=== PATIENT | female | born 1960 | race Caucasian/White ===

== ENCOUNTER → 2016-05-27 | Outpatient (CLI) | payer MEDICARE ==
[~2016-05-27] MED LIST: AMLO2.5T PO; ASPI81TA85 PO; CALCTAB75 PO; CITA40TA4 PO; OMEG100011 PO; OMEP40CA2 PO; SERO1TAB PO; VITA-130 PO; ZOCO20TA PO; [UNRECOGNIZED DRUG - CODE] TOP
--- NOTE | 2016-05-27 09:03 | REP ---
RIGHT UPPER QUADRANT ULTRASOUND: 05/27/2016. Clinical history: Nausea. Findings: No comparison study. Sonographic evaluation of the right upper quadrant shows the liver homogeneous in echotexture without focal hepatic mass, intrahepatic biliary dilatation nor perihepatic ascites. No hepatomegaly. The gallbladder is adequately filled without stone, sludge or pericholecystic fluid. The wall thickness is 1.7 mm and normal. There was no sonographic Al's sign. Common bile duct 6.5 mm without a filling defect. The pancreas was unremarkable except that it has limited views of the pancreatic tail. Right kidney is 9.5 x 5 x 3.2 cm. It shows no stone or hydronephrosis. Impression: 1. Negative right upper quadrant ultrasound. No stones, biliary dilatation, ascites or other acute finding. Signed by Raulito Garcia MD 05/27/2016 08:06 P
--- NOTE | 2016-05-27 11:19 | REP ---
BILIARY SCAN WITH GALLBLADDER EJECTION FRACTION: 05/27/2016. Clinical history: Nausea, gallbladder dysfunction suspected. Comparison: Right upper quadrant ultrasound 05/27/2016. Technique: The patient received bolus of 6.6 mCi technetium 99m mebrofenin with sequential 5-minute anterior images over the right upper quadrant for 1 hour. The patient then consumed 8 ounces of Ensure Enlive and beginning 65 minutes post tracer injection, another 1 hour of imaging at 2 minute intervals over the right upper quadrant is performed. Region of interest drawn about the gallbladder and ejection fraction calculated by a semiautomated method. Findings: The tracer distribution is prompt and fairly homogeneous throughout the liver. There is slight prominence of the left hepatic lobe. Activity is first seen in the gallbladder fossa on the 10-minute image with progressive washout of activity from the liver and increasing accumulation in the gallbladder. Activity is first seen in the duodenum at 50 minutes and thereafter into the small bowel. Good washout from the liver observed. The gallbladder ejection fraction is calculated at 39% for 60 minutes. With this technique, the normal range for ejection fraction is greater than 35%. Impression: 1. Prompt fairly homogeneous tracer uptake throughout the liver with biliary transit to the gallbladder and biliary to bowel transit in normal time frames with good washout from the liver. 2. Gallbladder ejection fraction of 39% is just above the lower end of the normal range of 35%. No significant biliary dyskinesia. Signed by Raulito Garcia MD 05/27/2016 08:07 P
== END ==
LOC: M RAD 07:41
PROVIDERS: ATTEND Internal Medicine Gastroenterology
DX: R11.0 Nausea (principal); K82.8 Other specified diseases of gallbladder
CPT/HCPCS: 76705; 78227; A9537; J2805

== ENCOUNTER → 2016-06-03 | Outpatient (CLI) | payer MEDICARE ==
[~2016-06-03] VITALS: Ht 172.7 cm; Wt 64.4 kg
[~2016-06-03] MED LIST changes: +LIDOCAINE 2% INJ 100 MG/5 ML SDV (FOR ANES.) As Ordered ONE; +NS 1,000 ML IV SCH; +PROPOFOL 200 MG/20 ML VIAL As Ordered ONE
--- NOTE | 2016-06-03 12:35 | ROOR ---
Patient Name: Cailin Hoffman Procedure Date: 06/03/2016 12:05 PM Date of : 1960 Age: 56 Room: [facility] Gender: Female Note Status: Finalized Procedure: Upper GI endoscopy Indications: Abdominal distention, Abdominal bloating, Nausea Providers: Ezio JEAN BAPTISTE MD Referring MD: BURTON Tai Requesting Provider: Medicines: Monitored Anesthesia Care Complications: No immediate complications. Procedure: Pre-Anesthesia Assessment: - The heart rate, respiratory rate, oxygen saturations, blood pressure, adequacy of pulmonary ventilation, and response to care were monitored throughout the procedure. The Endoscope was introduced through the mouth, and advanced to the third part of duodenum. The upper GI endoscopy was accomplished without difficulty. The patient tolerated the procedure well. Findings: Very small (insignificant) Hiatal Hernia. The esophagus was normal. The stomach (long/compliant) was normal. The examined duodenum was normal. Biopsies for histology were taken with a cold forceps in the third portion of the duodenum for evaluation of celiac disease. Biopsies were taken with a cold forceps in the gastric antrum for histology. Impression: - Very small (insignificant) Hiatal Hernia. - Normal esophagus. - Normal stomach. - Biopsies were taken with a cold forceps for H pylori evaluation - Normal examined duodenum. - Biopsies were taken with a cold forceps for evaluation of celiac disease. Recommendation: - Continue present medications. - Telephone endoscopist for pathology results in 2 weeks. - Lactose free diet. Low fat diet. - Eat smaller, more frequent meals throughout the day. Ezio Jean Baptiste MD Ezio JEAN BAPTISTE MD 06/03/2016 12:34:42 PM This report has been signed electronically. Number of Addenda: 0 Note Initiated On: 06/03/2016 12:05 PM Estimated Blood Loss: Estimated blood loss: none.
--- NOTE | 2016-06-03 12:36 | ROOR ---
Patient Name: Cailin Hoffman Procedure Date: 06/03/2016 12:07 PM Date of : 1960 Age: 56 Room: [facility] Gender: Female Note Status: Finalized Procedure: Colonoscopy Indications: Screening for colorectal malignant neoplasm Providers: Ezio JEAN BAPTISTE MD Referring MD: BURTON Tai Requesting Provider: Medicines: Monitored Anesthesia Care Complications: No immediate complications. Procedure: Pre-Anesthesia Assessment: - The heart rate, respiratory rate, oxygen saturations, blood pressure, adequacy of pulmonary ventilation, and response to care were monitored throughout the procedure. The Colonoscope was introduced through the anus and advanced to the terminal ileum, with identification of the appendiceal orifice and IC valve. The colonoscopy was performed without difficulty. The patient tolerated the procedure well. The quality of the bowel preparation was good. Findings: The perianal and digital rectal examinations were normal. The terminal ileum appeared normal. The entire colon appeared normal on direct and retroflexion views. Impression: - The examined portion of the ileum was normal. - The entire examined colon is normal on direct and retroflexion views. - No specimens collected. Recommendation: - Repeat colonoscopy in 10 years for screening purposes. Ezio Jean Baptiste MD Ezio JEAN BAPTISTE MD 06/03/2016 12:36:15 PM This report has been signed electronically. Number of Addenda: 0 Note Initiated On: 06/03/2016 12:07 PM Estimated Blood Loss: Estimated blood loss: none.
[2016-06-03 13:00] VITALS: BP 124/71
== END | disposition home or self-care (01) ==
LOC: M OPP 10:24
PROVIDERS: ATTEND Internal Medicine Gastroenterology
DX: Z12.11 Encounter for screening for malignant neoplasm of colon (principal); R11.0 Nausea; R14.0 Abdominal distension (gaseous); R10.84 Generalized abdominal pain; K44.9 Diaphragmatic hernia without obstruction or gangrene; R00.8 Other abnormalities of heart beat; I10 Essential (primary) hypertension; E78.5 Hyperlipidemia, unspecified; R12 Heartburn; D72.819 Decreased white blood cell count, unspecified; M19.90 Unspecified osteoarthritis, unspecified site; I73.00 Raynaud's syndrome without gangrene; Z85.828 Personal history of other malignant neoplasm of skin; F41.9 Anxiety disorder, unspecified; F32.9 Major depressive disorder, single episode, unspecified; F20.9 Schizophrenia, unspecified; Z78.0 Asymptomatic menopausal state; R06.83 Snoring; Z92.3 Personal history of irradiation; Z79.82 Long term (current) use of aspirin; Z79.899 Other long term (current) drug therapy; Z80.42 Family history of malignant neoplasm of prostate
CPT/HCPCS: 43239; 88305; 99156; 99157; G0121

== ENCOUNTER → 2018-09-07 | Outpatient (CLI) | payer MEDICARE ==
[~2018-09-07] MED LIST changes: -AMLO2.5T PO; +AMLO2.5T3 PO; +CALC1TAB30 PO; +E-Z-GAS II EFFERVESCENT PACKET (SODIUM BICARB./CITRIC ACID/SIMETHICONE) As Ordered ONE; +E-Z-HD 98% w/w 340GM SUSP BTL As Ordered ONE; +E-Z-PAQUE 96% w/w SUSP 176GM BTL As Ordered ONE; -LIDOCAINE 2% INJ 100 MG/5 ML SDV (FOR ANES.) As Ordered ONE; -NS 1,000 ML IV SCH; +OMEP1CAP73 PO; -OMEP40CA2 PO; +OMEP40CA97 PO; -PROPOFOL 200 MG/20 ML VIAL As Ordered ONE; -VITA-130 PO; +VITA500T PO
--- NOTE | 2018-09-07 17:55 | REP ---
Examination Requested: Esophagram Barium Swallow Reason For Exam/Comment: Heart burn Esophagram: The procedure was performed JAVY Arita, under the direct supervision of Dr. Martínez. The images were reviewed with Dr. Martínez. A single PA chest x-ray is submitted as a tool drawing checker film. The superior mediastinal structures are midline. The heart size is within normal limits. The lungs are clear. Liquid barium and gas producing granules were given in the erect position as well as liquid barium in the prone oblique position, in order to perform a double contrast esophagram examination. Oral and pharyngeal stages of the examination were unremarkable. There does appear to be osteophyte formation of C5-6 and C6-7 vertebral bodies indenting the posterior wall of the esophagus. Esophageal transport is efficient and there is no esophagitis, stricture, or mucosal ring noted. There is no hiatal hernia noted. Gastroesophageal reflux was not visualized throughout the course of the exam. Impression: 1. Osteophyte formation of C5-C6 and C6-C7 vertebral bodies indenting the posterior wall of the esophagus, otherwise unremarkable esophagram. 0.5 minutes of fluoroscopy time was utilized for this procedure. Some fluoroscopic images are performed with last image hold technology. These images require no additional radiation. Reviewed by JAVY Porter 09/07/2018 04:55 P Electronically Signed by Jeromy Martínez MD 09/07/2018 05:46 P
== END ==
LOC: M RAD 09:06
PROVIDERS: ATTEND Internal Medicine Gastroenterology
DX: M25.78 Osteophyte, vertebrae (principal); R12 Heartburn

== ENCOUNTER 2018-10-26 12:20 | Day surgery (SDC) | payer MEDICARE ==
[~2018-10-26] VITALS: Ht 172.7 cm; Wt 64.0 kg
[~2018-10-26 12:20] MED LIST changes: -E-Z-GAS II EFFERVESCENT PACKET (SODIUM BICARB./CITRIC ACID/SIMETHICONE) As Ordered ONE; -E-Z-HD 98% w/w 340GM SUSP BTL As Ordered ONE; -E-Z-PAQUE 96% w/w SUSP 176GM BTL As Ordered ONE; +NS 1,000 ML IV ONE
[2018-10-26] MEDS ORDERED: propofoL 200 MG/20 ML VIAL As Ordered ONE (14:34)
[2018-10-26] MEDS ORDERED: fentaNYL 100 MCG/2 ML INJECTION (J3010) As Ordered ONE (14:34)
[2018-10-26] MEDS ORDERED: LIDOCAINE 2% INJ 100 MG/5 ML SDV (FOR ANES.) As Ordered ONE (14:34)
[2018-10-26] MEDS ORDERED: LIDOCAINE 2% JELLY 30 ML As Ordered ONE (14:49)
--- NOTE | 2018-10-26 14:53 | ROOR ---
Patient Name: Cailin Hoffman Procedure Date: 10/26/2018 2:38 PM Date of : 1960 Age: 58 Room: [facility] Gender: Female Note Status: Finalized Procedure: Upper GI endoscopy Indications: Dysphagia, Heartburn Providers: Ezio JEAN BAPTISTE MD Referring MD: BURTON Tai Requesting Provider: Medicines: Monitored Anesthesia Care Complications: No immediate complications. Procedure: Pre-Anesthesia Assessment: - The heart rate, respiratory rate, oxygen saturations, blood pressure, adequacy of pulmonary ventilation, and response to care were monitored throughout the procedure. The Endoscope was introduced through the mouth, and advanced to the second part of duodenum. The upper GI endoscopy was accomplished without difficulty. The patient tolerated the procedure well. Findings: Very small (insignificant) Hiatal Hernia. The esophagus was normal. The stomach was normal. The examined duodenum was normal. Biopsy with a cold forceps in the entire esophagus was performed for evaluation of eosinophilic esophagitis. Impression: - Very small (insignificant) Hiatal Hernia. - Normal esophagus. - Normal stomach. - Normal examined duodenum. - Biopsy was performed in the entire esophagus. Recommendation: - Await pathology results. - Telephone my office for pathology results in 2 weeks. - Continue present medications. (omeprazole 20 mg twice a day) Ezio Jean Baptiste MD Ezio JEAN BAPTISTE MD 10/26/2018 2:53:25 PM Electronically signed by Ezio JEAN BAPTISTE MD Number of Addenda: 0 Note Initiated On: 10/26/2018 2:38 PM Estimated Blood Loss: Estimated blood loss: none.
[2018-10-26 15:21] VITALS: BP 121/72
== END 2018-10-26 15:28 | disposition home or self-care (01) ==
LOC: M OPP 12:20
PROVIDERS: ATTEND Internal Medicine Gastroenterology
DX: R12 Heartburn (principal); R13.10 Dysphagia, unspecified; Z79.82 Long term (current) use of aspirin; Z79.899 Other long term (current) drug therapy; Z88.8 Allergy status to other drugs, medicaments and biological substances; Z91.011 Allergy to milk products
CPT/HCPCS: 43239; 88305; J3010

== ENCOUNTER → 2019-02-12 | Outpatient (REF) | payer MEDICARE ==
[~2019-02-12] MED LIST changes: -NS 1,000 ML IV ONE; +OMEP-172 PO; -OMEP1CAP73 PO
== END ==
LOC: M LAB LCGH 13:21
PROVIDERS: ATTEND Physician Assistant
DX: C44.612 Basal cell carcinoma of skin of right upper limb, including shoulder (principal)

== ENCOUNTER 2021-04-29 12:25 | Day surgery (SDC) | payer MEDICARE ==
[~2021-04-29] VITALS: Ht 172.7 cm; Wt 60.1 kg
[~2021-04-29 12:25] MED LIST changes: -ASPI81TA85 PO; +ASPI81TA86 PO; -CITA40TA4 PO; +CITA40TA7 PO; +NS 1,000 ML IV ONE; -OMEP-172 PO; +OMEP1CAP73 PO; +OMEP40CA4 PO; -OMEP40CA97 PO; +VITA-243 PO; -VITA500T PO; +[UNRECOGNIZED DRUG - CODE] TOP; -[UNRECOGNIZED DRUG - CODE] TOP
[2021-04-29] MEDS ORDERED: ECOT81TA5 PO (13:12)
[2021-04-29] MEDS ORDERED: BENZ-52 PO (13:18)
[2021-04-29] MEDS ORDERED: SUCR1TAB56 PO (13:18)
[2021-04-29] MEDS ORDERED: PANT40TA29 PO (13:18)
[2021-04-29] MEDS ORDERED: LIDOCAINE 2% 100MG/5ML SDV (FOR ANES.) As Ordered ONE (14:38)
[2021-04-29] MEDS ORDERED: propofoL 200 MG/20 ML VIAL As Ordered ONE (14:38)
[2021-04-29] MEDS ORDERED: fentaNYL 100 MCG/2 ML INJECTION As Ordered ONE (14:38)
[2021-04-29 15:07] VITALS: BP 101/62
== END 2021-04-29 15:17 | disposition home or self-care (01) ==
LOC: M SDC 12:25
PROVIDERS: ATTEND Internal Medicine Gastroenterology
DX: R12 Heartburn (principal); R11.0 Nausea; E78.5 Hyperlipidemia, unspecified; F32.A Depression, unspecified; F20.9 Schizophrenia, unspecified; Z88.8 Allergy status to other drugs, medicaments and biological substances; Z79.899 Other long term (current) drug therapy
CPT/HCPCS: 43235; J3010